=== PATIENT | male | born 1990 | race African-American/Black ===

== ENCOUNTER 2021-05-17 22:33 | Emergency (ER) | payer MEDICAID, OTHER ==
[~2021-05-17] VITALS: Ht 180.3 cm; Wt 80.0 kg
[2021-05-17] MEDS ORDERED: BICT1TAB PO (22:39)
[2021-05-17] MEDS ORDERED: ACETAMINOPHEN 500 MG TABLET PO ONE (23:00)
[2021-05-17] MEDS ORDERED: KETOROLAC TROMETHAMINE 30 MG/ML VIAL IM ONE (23:00)
[2021-05-18] MEDS ORDERED: LIDOCAINE 1% 10 ML VIAL IARTIC ONE (01:30)
[2021-05-18] MEDS ORDERED: MORPHINE SULFATE 4 MG/ML SYRINGE IM ONE (03:15)
[2021-05-18] MEDS ORDERED: OxyCODONE HCL 5 MG IR TABLET PO ONE (03:15)
[2021-05-18 05:17] VITALS: BP 141/89
== END 2021-05-18 06:23 | disposition home or self-care (01) ==
LOC: EMS 22:39
DX: S82.852A Displaced trimalleolar fracture of left lower leg, initial encounter for closed fracture (principal); Z79.899 Other long term (current) drug therapy; W20.8XXA Other cause of strike by thrown, projected or falling object, initial encounter; Y93.89 Activity, other specified; Y92.89 Other specified places as the place of occurrence of the external cause; Y99.0 Civilian activity done for income or pay
CPT/HCPCS: 27818; 73590; 73610 ×2; 73630; 96372 ×2; 99284; J1885; J2270; J3490

== ENCOUNTER 2021-05-21 14:33 | Emergency (ER) | payer MEDICAID, OTHER ==
[~2021-05-21] VITALS: Ht 180.3 cm; Wt 78.6 kg
[~2021-05-21 14:33] MED LIST: BICT1TAB PO
[2021-05-21 16:38] VITALS: BP 154/95
== END 2021-05-21 17:28 | disposition home or self-care (01) ==
LOC: EMS 15:31
DX: S82.852A Displaced trimalleolar fracture of left lower leg, initial encounter for closed fracture (principal); Z79.899 Other long term (current) drug therapy; X58.XXXA Exposure to other specified factors, initial encounter; Y93.89 Activity, other specified; Y92.89 Other specified places as the place of occurrence of the external cause; Y99.8 Other external cause status
CPT/HCPCS: 29515; 99283